=== PATIENT | female | born 1985 | race Hispanic/Latino ===

== ENCOUNTER 2018-05-14 07:51 | Outpatient (CLI) | payer OTHER ==
[2018-05-14 08:42] LABS: Blood Urea Nitrogen 7 mg/dL (7-17)
--- NOTE | 2018-05-14 11:51 | Magnetic Resonance Report ---
MR CERVICAL SPINE WITH AND WITHOUT CONTRAST HISTORY: Radiculopathy. TECHNIQUE: Axial T2 and T2 gradient. Sagittal T1, T2 and STIR. COMPARISON: None. FINDINGS: The cervical spinal cord is normal size and signal intensity throughout. No abnormal intramedullary signal is detected. Normal height and alignment of the cervical vertebral bodies. Normal bone marrow signal. The intervertebral disc spaces are within normal limits. The facet joints are in appropriate relationship. No significant joint pathology or hypertrophic changes. The paraspinal soft tissues are within normal limits. No abnormal enhancement following IV gadolinium. C2-3: Normal. C3-4: Normal. C4-5: Normal. C5-6: Normal. C6-7: Normal. C7-T1: Normal. IMPRESSION: Normal MRI of the cervical spine with and without contrast.
--- NOTE | 2018-05-14 11:54 | Magnetic Resonance Report ---
MR THORACIC SPINE WITH AND WITHOUT CONTRAST: HISTORY: Radiculopathy. FINDINGS: Multiplanar and multisequence MRI of the thoracic spine before and after IV gadolinium is submitted. The thoracic spinal cord is normal size and signal intensity throughout. No evidence for central canal stenosis. Normal height and alignment of the thoracic vertebral bodies. Normal bone marrow signal. There is mild disc desiccation and narrowing at T7-8. The remaining disc levels are unremarkable. No bulging disc or herniation. The paraspinal soft tissues are within normal limits. No evidence for abnormal enhancement following gadolinium. 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 Otherwise unremarkable MRI of the thoracic spine with and without contrast.
--- NOTE | 2018-05-14 11:59 | Magnetic Resonance Report ---
MRI LUMBAR SPINE WITHOUT CONTRAST HISTORY: Radiculopathy. TECHNIQUE: axial T1, T2. sagittal T1,T2, STIR. COMPARISON: none. FINDINGS: The conus terminates at T12-L1. No signal abnormality or mass. The cauda equina is within normal limits. No central canal stenosis. There is straightening of the normal lordosis. Normal height and alignment of the lumbar vertebral bodies. Normal bone marrow signal. Mild disc desiccation without significant narrowing is identified at L2-3, L3-4 and L4-5. The facet joints and ligamentum flavum are within normal limits. No significant joint pathology. L1-2: Normal. L2-3: Minimal bulging disc. No herniation or mass effect. L3-4: Normal. L4-5: Normal. L5-S1: Normal. IMPRESSION: Mild straightening of the normal lordosis could be secondary to muscular spasm. Minimal disc desiccation is noted in the mid lumbar region. No significant bulging disc, herniation or nerve impingement.
== END 2018-05-14 07:52 | disposition home or self-care (01) ==
LOC: MRI 07:51 → EDBD 08:00
PROVIDERS: ATTEND Psychiatry & Neurology Neurology
DX: M51.36 Other intervertebral disc degeneration, lumbar region (principal); M51.34 Other intervertebral disc degeneration, thoracic region; M54.12 Radiculopathy, cervical region
CPT/HCPCS: 36415; 72148; 72156; 72157; 82565; 84520; A9577